=== PATIENT | female | born 1990 | race African-American/Black ===

== ENCOUNTER 2021-07-07 12:18 | Outpatient (CLI) | payer MEDICAID ==
[2021-07-07 17:05] VITALS: BP 128/60
== END 2021-07-07 18:09 | disposition home or self-care (01) ==
LOC: APU 12:18 → TRG 12:18
PROVIDERS: ATTEND Obstetrics & Gynecology
DX: Z34.93 Encounter for supervision of normal pregnancy, unspecified, third trimester (principal); Z3A.37 37 weeks gestation of pregnancy
CPT/HCPCS: 59025